=== PATIENT | female | born 1970 | race African-American/Black ===

== ENCOUNTER 2018-08-21 21:22 | Emergency (ER) | payer SELFPAY ==
[~2018-08-21] VITALS: Ht 147.3 cm; Wt 70.3 kg
--- NOTE | 2018-08-21 21:35 | NUR ---
ED Nurse Note: pt came to ed c/o of "hacking cough for 2 weeks" and back pain 12/10. per pt she coughs hard enough to vomit and urinate denies, diarrhea. denies congestion.
[2018-08-21 21:36] VITALS: BP 159/84
--- NOTE | 2018-08-21 21:40 | Emergency Room Report ---
History of Present Illness General Chief Complaint: Upper Respiratory Illness Source: Patient Present Illness HPI This is a 47-year-old female with no past H. She presents with a cough for the last 2 and half weeks. Seen initially by her primary care prescribed azithromycin and Clara Lindquist. It did not help. She went to urgent care 3 days ago had chest x-ray was negative. No nausea no vomiting. Cough is nonproductive in nature. Worse with inspiration. Denies any fever or chills. Denies any abdominal pain. Allergies: Coded Allergies: GUAIFENESIN (Verified Allergy, Unknown, Hives, 08/21/18) Patient History Past Medical History: see triage record, old chart reviewed Past Surgical History: none Pertinent Family History: none Social History: Denies: smoking Last Menstrual Period: 07/05/18 Now: No Immunizations: other Reviewed Nursing Documentation: PMH: Agreed; PSxH: Agreed Nursing Documentation-PMH Past Medical History: No Stated History Review of Systems Eye: Denies: eye pain, blurred vision ENT: Denies: ear pain, nose congestion, throat swelling Respiratory: Reports: cough, shortness of breath Cardiovascular: Denies: chest pain, palpitations Gastrointestinal: Denies: abdominal pain, diarrhea, nausea, vomiting Musculoskeletal: Denies: back pain, joint pain Skin: Denies: rash Neurological: Denies: headache, numbness Endocrine: Denies: increased thirst, increased urine Hematologic/Lymphatic: Denies: easy bruising All Other Systems: negative except mentioned in HPI Physical Exam Vital Signs Date Time Temp Pulse Resp B/P (MAP) Pulse Ox O2 Delivery O2 Flow Rate FiO2 08/21/18 21:28 98.2 85 16 159/84 96 Room Air vitals with high blood pressure Sp02 EP Interpretation: reviewed, normal General Appearance: well appearing, no apparent distress, alert Head: normocephalic, atraumatic Eyes: bilateral eye PERRL, bilateral eye EOMI ENT: hearing grossly normal, normal pharynx Neck: full range of motion, supple, no meningismus Respiratory: chest non-tender, lungs clear, normal breath sounds Cardiovascular #1: regular rate, rhythm, no murmur Gastrointestinal: normal bowel sounds, non tender, no mass, no organomegaly, no bruit, non-distended Musculoskeletal: back normal, gait/station normal, normal range of motion Psychiatric: mood/affect normal Skin: warm/dry Medical Decision Making Diagnostic Impression: Primary Impression: Cough in adult ER Course Patient with persistent cough for almost 3 weeks now. No evidence of ACS, PE, dissection, pneumonia to name a few. Discharge home with symptomatically treatment. Last Vital Signs Date Time Temp Pulse Resp B/P (MAP) Pulse Ox O2 Delivery O2 Flow Rate FiO2 08/21/18 21:36 98.2 85 16 159/84 96 Room Air Status: unchanged Disposition: HOME, SELF-CARE Condition: Stable Scripts Levofloxacin* (LEVAQUIN*) 500 Mg Tablet 500 MG ORAL DAILY, #7 TAB Prov: Tom Rowland MD 08/21/18 Prednisone* (PREDNISONE*) 20 Mg Tablet 40 MG ORAL DAILY, #10 TAB Prov: Tom Rowland MD 08/21/18 Codeine/Promethazine Hcl* (PROMETHAZINE-CODEINE SYRUP*) 118 Ml Syrup 5 ML ORAL Q6H PRN for For Cough, #118 ML 0 Refills Prov: Tom Rowland MD 08/21/18 Patient Instructions: Upper Respiratory Infection, Adult Additional Instructions: Follow-up with your doctor in 7 days. Return if symptom worsen. Tom Rowland MD Aug 21, 2018 21:40
[2018-08-21] MEDS ORDERED: PREDNISONE20 MG ORAL (21:44)
[2018-08-21] MEDS ORDERED: LEVAQUIN500 MG ORAL (21:44)
[2018-08-21] MEDS ORDERED: PROMETHAZINE-C118 M1 ORAL (21:44)
--- NOTE | 2018-08-21 21:50 | NUR ---
ED Nurse Note: pt dc per ermd order, pt is aox4, pt dc and prescription instructions given pt verablized understaing pt id band removed, pt took all belongings pt is able to ambulate with steady gait
== END 2018-08-21 21:50 | disposition home or self-care (01) ==
LOC: EMR 21:39
DX: R05 Cough (principal); R06.02 Shortness of breath; Z88.8 Allergy status to other drugs, medicaments and biological substances
CPT/HCPCS: 99282